=== PATIENT | female | born 1950 | race Caucasian/White ===

== ENCOUNTER 2019-03-26 10:50 | Day surgery (SDC) | payer MEDICARE, OTHER ==
[~2019-03-26] VITALS: Ht 165.1 cm; Wt 71.8 kg
[~2019-03-26 10:50] MED LIST: ACET500 PO; Calcium + Vita1 EACH PO; LOSA25 PO; PRAV20 PO; PROLIA60 MG/1 ML SC
[2019-03-26] MEDS ORDERED: ROSU10TA PO (11:32)
--- NOTE | 2019-03-26 13:56 | NUR ---
PT TO RECOVERY POST PROCEDURE. PT IS ALERT AND CONVERSING APPROPRIATELY. PT REPORTS BACK DISCOMFORT 4/10, ACHEY IN CHARACTER; DENIES THE NEED FOR INTERVENTION AT THIS TIME. PT DENIES SOB OR NAUSEA. MONITOR SR 70'S, B/P 142/73, AFEBRILE, SPO2 96% RA. R GROIN SITE: NO SWELLING/HEMATOMA, TEGADERM DRSG INTACT. BLE PULSES: DP +2 AND PT + 2. PT DENIES PAIN OR DISCOMFORT AT R GROIN SITE. PT'S SPOUSE AT BEDSIDE ATTENTIVE.
--- NOTE | 2019-03-26 14:14 | NUR ---
PT REPORTS INCREASING BACK DISCOMFORT 5/10; ADMINISTERED 1 NORCO 5/325MG.
--- NOTE | 2019-03-26 14:50 | NUR ---
PT REPORTS RELIEF AFTER NORCO, BACK DISCOMFORT 3/10.
--- NOTE | 2019-03-26 15:46 | NUR ---
PT AMB TO BATHROOM, VOIDED; TOLERATED ACTIVITY WELL, SITE UNCHANGED AFTER ACTIVITY.
--- NOTE | 2019-03-26 16:15 | NUR ---
PT DRESSED SELF WITHOUT ANY ISSUES, SITE UNCHANGED WITH ACTIVITY.
--- NOTE | 2019-03-26 16:20 | NUR ---
PT AND SPOUSE RECEIVED DISCHARGE INSTRUCTIONS, MED LIST AND "AFTER CARE" INSTRUCTIONS; VERBALIZED GOOD UNDERSTANDING. IV REMOVED-CANNULA INTACT.
--- NOTE | 2019-03-26 16:25 | NUR ---
PT LEFT FACILITY VIA W/C WITH SPOUSE, CONDITION STABLE.
== END 2019-03-26 16:25 | disposition home or self-care (01) ==
LOC: MHTC 10:50
DX: I72.0 Aneurysm of carotid artery (principal); I12.9 Hypertensive chronic kidney disease with stage 1 through stage 4 chronic kidney disease, or unspecified chronic kidney disease; N18.2 Chronic kidney disease, stage 2 (mild); N25.81 Secondary hyperparathyroidism of renal origin; E78.00 Pure hypercholesterolemia, unspecified; M81.0 Age-related osteoporosis without current pathological fracture; Z87.891 Personal history of nicotine dependence; Z88.8 Allergy status to other drugs, medicaments and biological substances
CPT/HCPCS: 36224; 36225; 36226; 99152; 99153; A9270-GY; C1760; C1769; C1887; C1894; J1644; J2250; J3010; J7030; Q9967

== ENCOUNTER → 2020-04-06 | Outpatient (CLI) | payer MEDICARE, OTHER ==
[~2020-04-06] MED LIST changes: +ROSU10TA PO
== END | disposition home or self-care (01) ==
LOC: LAB SHORT 10:48 → PLD 10:48
DX: L72.9 Follicular cyst of the skin and subcutaneous tissue, unspecified (principal)
CPT/HCPCS: 88304